=== PATIENT | female | born 1935 | race Caucasian/White ===

== ENCOUNTER 2016-08-30 13:20 | Emergency (ER) | payer OTHER, MEDICARE, BC ==
[~2016-08-30] VITALS: Ht 162.6 cm; Wt 79.5 kg
[2016-08-30] MEDS ORDERED: ELIQUIS5 MG (13:38)
[2016-08-30] MEDS ORDERED: ASPIR LOW81 MG PO (13:38)
[2016-08-30 15:40] VITALS: BP 190/87
== END 2016-08-30 15:50 | disposition home or self-care (01) ==
LOC: ED 13:20
DX: S20.211A Contusion of right front wall of thorax, initial encounter (principal); S50.01XA Contusion of right elbow, initial encounter; S50.311A Abrasion of right elbow, initial encounter; V43.62XA Car passenger injured in collision with other type car in traffic accident, initial encounter; Y92.410 Unspecified street and highway as the place of occurrence of the external cause; I10 Essential (primary) hypertension

== ENCOUNTER 2016-09-24 08:30 | Outpatient (RCR) | payer MEDICARE, BC ==
[~2016-09-24 08:30] MED LIST: ASPIR LOW81 MG PO; ELIQUIS5 MG
== END 2016-09-24 09:00 | disposition home or self-care (01) ==
LOC: PT 08:30
DX: M17.9 Osteoarthritis of knee, unspecified (principal)

== ENCOUNTER → 2016-10-01 | Outpatient (CLI) | payer MEDICARE, BC | LOC: MAMMO 09:09 | DX: Z12.31 Encounter for screening mammogram for malignant neoplasm of breast (principal) | CPT/HCPCS: G0202 ==

== ENCOUNTER → 2018-01-12 | Outpatient (CLI) | payer MEDICARE, BC | LOC: RAD 09:49 → MAMMO 10:00 → RAD 10:00 | DX: Z13.820 Encounter for screening for osteoporosis (principal); M85.89 Other specified disorders of bone density and structure, multiple sites ==

== ENCOUNTER → 2018-08-10 | Outpatient (CLI) | payer MEDICARE, BC ==
[~2018-08-10] VITALS: Ht 162.6 cm; Wt 95.5 kg
[~2018-08-10] MED LIST changes: +ACTOS30 MG PO; +AMIODARONE200 MG PO; +CHILDREN'S ASPI81 M1 PO; +CLOPIDOGREL PO; +CRANBERRY400 M2 PO; +FISH OIL1 IU PO; +LISINOPRIL AND1 TA2 PO; +NORVASC 10MG10 MG PO; +OS-CAL 500+D31 EACH PO; +TRIGLIDE160 M1 PO
[2018-08-10 16:09] VITALS: BP 181/78
== END ==
LOC: AMSURD 15:50
DX: K11.21 Acute sialoadenitis (principal)
CPT/HCPCS: J1100; J3490

== ENCOUNTER → 2018-08-10 | Outpatient (CLI) | payer MEDICARE, BC ==
[2018-08-10 10:39] LABS: EOS # 0.1 (0.04-0.40); EOS % 0.7 % (1.0-5.0); HEMATOCRIT 38.4 % (37.0-47.0); MEAN CELL VOLUME 92 fl (78-100); MEAN CORPUSCULAR HEMOGLOBIN 29 pg (27-31); MEAN CORPUSCULAR HGB CONC 31 g/dL (33-37); MEAN PLATELET VOLUME 9.8 fl (7.4-10.4); MONO # 0.9 (0.20-0.80); NEU # 8.9 (1.40-6.50); PLATELET COUNT 334 K/mm3 (130-400); RED BLOOD COUNT 4.17 M/mm3 (4.10-5.30); RED CELL DISTRIBUTION WIDTH 16.4 % (11.5-14.5); WHITE BLOOD COUNT 11.9 K/mm3 (4.8-10.8)
[2018-08-10 10:45] LABS: ALBUMIN 4.1 g/dL (3.4-4.8); POTASSIUM 3.4 mmol/L (3.5-5.1)
[2018-08-10 10:46] LABS: CALCIUM 9.8 mg/dL (8.3-10.5)
[2018-08-10 10:47] LABS: TOTAL PROTEIN 7.9 g/dL (6.2-8.1)
[2018-08-10 10:49] LABS: TOTAL BILIRUBIN 0.6 mg/dL (0.2-1.2)
[2018-08-10 11:43] LABS: ERYTHROCYTE SEDIMENTATION RATE 57 mm/hr (0-30)
== END ==
LOC: LAB 10:18
PROVIDERS: Nurse Practitioner Family
DX: K11.8 Other diseases of salivary glands (principal); I65.22 Occlusion and stenosis of left carotid artery; R22.1 Localized swelling, mass and lump, neck; J38.7 Other diseases of larynx
CPT/HCPCS: Q9967

== ENCOUNTER → 2019-05-19 | Outpatient (CLI) | payer MEDICARE, BC ==
[2018-08-10 16:09] VITALS: BP 181/78
== END ==
LOC: RAD 12:59
DX: K37 Unspecified appendicitis (principal)
CPT/HCPCS: Q9967

== ENCOUNTER 2019-10-03 08:30 | Outpatient (RCR) | payer MEDICARE, BC ==
[2018-08-10 16:09] VITALS: BP 181/78
== END 2019-10-03 09:00 | disposition still patient (30) ==
LOC: PT 08:30
DX: M54.5 Low back pain (principal)

== ENCOUNTER → 2021-04-21 | Outpatient (CLI) | payer MEDICARE, BC | LOC: MAMMO 10:29 | DX: Z13.820 Encounter for screening for osteoporosis (principal); M81.0 Age-related osteoporosis without current pathological fracture; Z78.0 Asymptomatic menopausal state ==

== ENCOUNTER → 2023-06-15 | Outpatient (CLI) | payer MEDICARE, BC | LOC: RAD 08:54 → MAMMO 09:00 | DX: M81.0 Age-related osteoporosis without current pathological fracture (principal) ==

== ENCOUNTER → 2023-12-31 | Outpatient (CLI) | payer MEDICARE, BC | LOC: RAD 11:54 | DX: M25.561 Pain in right knee (principal); I25.10 Atherosclerotic heart disease of native coronary artery without angina pectoris; Z96.651 Presence of right artificial knee joint ==